=== PATIENT | male | born 1955 | race Caucasian/White ===

== ENCOUNTER 2019-01-16 17:20 | Emergency (ER) | payer BC ==
[~2019-01-16] VITALS: Ht 170.2 cm; Wt 68.2 kg
[~2019-01-16 17:20] MED LIST: VYTORIN
[2019-01-16 17:30] VITALS: BP 175/78; TEMP 98
[2019-01-16] MEDS ORDERED: ASPIRIN 81M81 MG/TA2 PO (19:20)
[2019-01-16] MEDS ORDERED: LEVAQUIN 5500 MG/TA1 PO (20:16)
[2019-01-16] MEDS ORDERED: CEPHALEXIN500 M1 PO (20:16)
[2019-01-16 20:48] VITALS: PULSE 73
== END 2019-01-16 20:56 | disposition home or self-care (01) ==
LOC: COL.ER 17:20
DX: S91.332A Puncture wound without foreign body, left foot, initial encounter (principal); E78.5 Hyperlipidemia, unspecified; Z23 Encounter for immunization; Z88.5 Allergy status to narcotic agent; Z79.82 Long term (current) use of aspirin; W45.0XXA Nail entering through skin, initial encounter; Y92.009 Unspecified place in unspecified non-institutional (private) residence as the place of occurrence of the external cause